=== PATIENT | male | born 1985 | race Caucasian/White ===

== ENCOUNTER 2017-08-23 11:10 | Outpatient (CLI) | payer BC ==
[~2017-08-23 11:10] MED LIST: Gadobenate Dimeglumine 529 MG/1 ML (20ML VIAL) ONE
--- NOTE | 2017-08-23 15:13 | MRI ---
MRI LUMBAR SPINE WITH AND WITHOUT CONTRAST: DATE: 08/23/2017 HISTORY: A 32-year-old male with lumbar radiculopathy (M54.16). Right-sided sciatica. Previous lumbar surger y. COMPARISON: None. TECHNIQUE: Multiple sequences obtained in axial and sagittal planes, pre and post IV injection of gadolinium-bas ed contrast agent: MultiHance 20 mL. FINDINGS: Vertebral body heights are maintained. No pathology of the perivertebral spaces identified. For the purposes of this report, it will be assumed that there are five lumbar type vertebrae. No spondylol isthesis. The conus medullaris terminates at T12-L1. The cauda equina is arranged in a symmetrical, normal distribution throughout the thecal sac. The T12-L1, L1-L2, L2-L3, L3-L4, and L4-L5 levels are essentially normal. At L5-S1, there is right hemilaminectomy defect and right partial facetectomy versus a hypoplastic ri ght facet joint complex. There is enhancing post surgical scar tissue in the anterior epidural space , abutting the right S1 nerve root at the right lateral recess. There is a small central disk hernia tion with a midline posterior annular fissure that enhances. This is contiguous with the right-sided scar tissue. There is disk desiccation and moderate disk space narrowing, in addition to a mild dif fuse disk bulge. No neural foraminal stenosis or significant central spinal canal stenosis. IMPRESSION: 1. Status post right hemilaminectomy at L5-S1, with associated post surgical scar tissue abutting th e right S1 nerve root at the right lateral recess. 2. The right L5-S1 facet complex is small. This may be a hypoplastic right facet complex. Alternat ively, there may have been a right partial facetectomy. 3. Degenerative disk disease at L5-S1. 4. The rest of the levels are normal. ANGELICA Payan POS: [facility]
== END 2017-08-23 11:11 | disposition home or self-care (01) ==
LOC: TBSIIMAG 11:10
PROVIDERS: ATTEND Neurological Surgery
DX: M51.17 Intervertebral disc disorders with radiculopathy, lumbosacral region (principal); M89.8X8 Other specified disorders of bone, other site; Z98.890 Other specified postprocedural states
CPT/HCPCS: 72158; A9579